=== PATIENT | female | born 1990 | race Caucasian/White ===

== ENCOUNTER 2020-03-28 10:16 | Emergency (ER) | payer MEDICAID ==
[~2020-03-28] VITALS: Ht 170.2 cm; Wt 64.9 kg
--- NOTE | 2020-03-28 10:16 | NUR ---
Patient to ER bed 5 to gown for evaluation. Side rails up.
[2020-03-28 10:20] VITALS: BP_SYST 124
--- NOTE | 2020-03-28 10:20 | NUR ---
Pt walked in to ER with c/o bilat flank pain, burning and frequency upon urination. Reports foul smelling urine. Denies n/v or fevers at this time. V/S stable, pt is afebrile. Currently sitting at bedside, will continue to monitor.
--- NOTE | 2020-03-28 10:25 | NUR ---
Urine sample collected and dipped, results given to
--- NOTE | 2020-03-28 10:34 | NUR ---
ER Dr. Azul at bedside examining patient.
[2020-03-28] MEDS ORDERED: cefTRIAXone 1 GM VIAL IM ONE (10:45)
[2020-03-28 11:03] VITALS: BP_SYST 124
--- NOTE | 2020-03-28 11:04 | NUR ---
Patient given written and verbal discharge instructions and verbalizes understanding. ER MD discussed with patient the results and treatment provided. Patient in stable condition. ID arm band removed. Rx of Keflex and Motrin given. Patient educated on pain management and to follow up with PMD. Pain Scale 0. Opportunity for questions provided and answered. Medication side effect fact sheet provided.
[2020-03-30 00:06] LABS: CHLAMYDIA TRACHOMATIS NAA Negative (Negative); NEISSERIA GONORRHOEAE NAA Negative (Negative)
== END 2020-03-28 11:04 | disposition home or self-care (01) ==
LOC: SED 10:16
DX: N12 Tubulo-interstitial nephritis, not specified as acute or chronic (principal)
CPT/HCPCS: 81002; 81025; 87086; 87491; 87591; 96372; 99283